=== PATIENT | male | born 1955 | race Caucasian/White ===

== ENCOUNTER 2023-04-15 08:47 | Emergency (ER) | payer MEDICARE ==
[2023-04-15 09:26] VITALS: BP 144/83; O2SAT 98
--- NOTE | 2023-04-15 09:39 | XRAY Report ---
PROCEDURE: Elbow 3 View LT INDICATIONS: Trauma TECHNIQUE: 3 views of the elbow were acquired. COMPARISON: None. FINDINGS: Bones: No fractures or dislocations. No suspicious bony lesions. Soft tissues: No effusion. No suspicious soft tissue calcifications or masses. IMPRESSION: No acute fracture. No osseous lesion. If symptoms and/or clinical suspicion for pathology continue, f urther assessment with repeat plain films, or advanced imaging (e.g., CT, MRI, or bone scan) is recom mended for further assessment. Reviewed by: Sasha Ji MD on 04/15/2023 9:38 AM [facility] Approved by: Sasha Ji MD on 04/15/2023 9:38 AM [facility] Station ID: [id number]
--- NOTE | 2023-04-15 10:00 | ED Physician Documentation ---
PD HPI UPPER EXT INJURY - Stated complaint Stated Complaint: ELBOW PX - Chief complaint Chief Complaint: Ext Problem - History obtained from History obtained from: Patient - Additonal information Additional information: He has had 3 injuries to the left arm over the last week. The first 1 is he was opening his garage and there was a heavy tabletop on the other side and it fell towards him and he had to grab it but the momentum of it pulled his arm. Subsequently he had 2 more minor injuries each time feeling like something was tearing above the elbow. PD PAST MEDICAL HISTORY - Past Medical History Past Medical History: Yes - Past Surgical History Past Surgical History: Yes Ortho: Knee replacement - Allergies Allergies/Adverse Reactions: Allergies Allergy/AdvReac Type Severity Reaction Status Date / Time No Known Drug Allergies Allergy Verified 04/15/23 09:06 - Social History Does the pt smoke?: Yes Smoking Status: Light tobacco smoker Does the pt drink ETOH?: No Does the pt have substance abuse?: No - Immunizations Immunizations are current?: Yes - POLST Patient has POLST: No PD ED PE NORMAL - Vitals Vital signs reviewed: Yes - General General: Alert and oriented X 3, No acute distress - Extremities Extremities: Other (Significant bruising of the right medial bicep area with dependent bruising tracking down into the forearm and thenar musculature. There is no specific tenderness. He has excellent strength in bicep and coracobrachialis function without a palpable deformity of the bicep tendon or Randy deformity.) - Neuro Neuro: Alert and oriented X 3, Normal speech - Psych Psych: Normal mood, Normal affect Results - Vitals Vitals: Vital Signs - 24 hr 04/15/23 09:02 Temperature 36.2 C L Heart Rate 73 Respiratory 20 Rate Blood Pressure 144/83 H O2 Saturation 98 Oxygen O2 Source Room air - Rads (name of study) Three-view x-ray of the left elbow is negative Relevant Findings:: Final report received, EMP independent interpretation of test Departure - Departure Disposition: 01 Home, Self Care Clinical Impression: Contusion of arm, left Qualifiers: Encounter type: initial encounter Qualified Code(s): S40.022A - Contusion of left upper arm, initial encounter Condition: Good Record reviewed to determine appropriate education?: Yes Instructions: ED Contusion Soft Tissue Follow-Up: Orthopedic Care [Provider Group] Comments: As discussed, it appears that you just have bruising and blood in the subcutaneous tissues. It is not consistent with a bicep tear. That said it is reasonable to follow-up with one of our orthopedists and the number is on this form. You can use heat and gentle stretching, try not to do anything heavy or lift more than a few pounds with that arm. Return for new or worsening symptoms.
== END 2023-04-15 10:07 | disposition home or self-care (01) ==
LOC: ED 08:47
DX: S40.022A Contusion of left upper arm, initial encounter (principal); W22.8XXA Striking against or struck by other objects, initial encounter; F17.200 Nicotine dependence, unspecified, uncomplicated
CPT/HCPCS: 99283